=== PATIENT | female | born 1990 | race Caucasian/White ===

== ENCOUNTER 2019-05-01 08:21 | Day surgery (SDC) | payer BC ==
[~2019-05-01 08:21] MED LIST: Lactated Ringers 1,000 ML IV SCH; Sodium Chloride 0.9% 10 ML SDV IV PRN; Sodium Chloride 0.9% 10 ML Syringe FLUSH PRN; Sodium Chloride 0.9% 2.5 ML Syringe FLUSH PRN; ceFAZolin 2 GM in Premix Bag 1 BAG IV ONE
[2019-05-01] MEDS ORDERED: Propofol 200 MG/20 ML SDV ONE (09:00)
[2019-05-01] MEDS ORDERED: Midazolam 1 MG/ML 2 ML SDV ONE ×2 (09:01)
[2019-05-01] MEDS ORDERED: Sodium Chloride 0.9% 20 ML ONE (09:04)
[2019-05-01] MEDS ORDERED: ceFAZolin 1 GM Vial ONE (09:04)
--- NOTE | 2019-05-01 09:10 | PCM.PREANE ---
Preanesthetic Assessment - Anesthesia/Transfusion/Family Hx Anesthesia History: Prior Anesthesia Without Reaction Family History of Anesthesia Reaction: No Transfusion History: No Prior Transfusion(s) Intubation History: Unknown - Review of Systems General: No Symptoms Pulmonary: No Symptoms Cardiovascular: No Symptoms Gastrointestinal: No Symptoms Neurological: No Symptoms Other: Reports: None - Physical Assessment Vital Signs: Last Vital Signs Temp 36.4 C 05/01/19 08:35 Pulse 99 05/01/19 08:35 Resp 20 05/01/19 08:35 BP 121/80 05/01/19 08:35 Pulse Ox 97 05/01/19 08:35 Height: 5 ft Weight: 94.801 kg ASA Class: 2 Mental Status: Alert & Oriented x3 Airway Class: Mallampati = 1 Dentition: Reports: Normal Dentition, [place](s) (x1 lower right and left (back)) Thyro-Mental Finger Breadths: 3 Mouth Opening Finger Breadths: 3 ROM/Head Extension: Full Lungs: Clear to Auscultation, Normal Respiratory Effort Cardiovascular: Regular Rate, Regular Rhythm - Allergies Allergies/Adverse Reactions: Allergies Allergy/AdvReac Type Severity Reaction Status Date / Time amoxicillin Allergy Itching Verified 04/26/19 09:48 latex Allergy Itching Verified 04/26/19 09:48 sulfamethoxazole Allergy Itching Verified 04/26/19 09:48 cinnamon Allergy Abdominal Uncoded 04/26/19 09:48 Pain - Blood Blood Available: No - Anesthesia Plan Pre-Op Medication Ordered: None - Acknowledgements Anesthesia Type Planned: MAC Pt an Appropriate Candidate for the Planned Anesthesia: Yes Alternatives and Risks of Anesthesia Discussed w Pt/Guardian: Yes Pt/Guardian Understands and Agrees with Anesthesia Plan: Yes PreAnesthesia Questionnaire HEENT History: Reports: Other (See Below) Other HEENT History: wears glasses Cardiovascular History: Reports: None Respiratory History: Reports: None Gastrointestinal History: Reports: None Genitourinary History: Reports: None [employer] History: Reports: Musculoskeletal History: Reports: None Neurological History: Reports: Migraines Psychiatric History: Reports: Anxiety, Depression Endocrine/Metabolic History: Reports: Obesity/BMI 30+ (BMI 40.8) Hematologic History: Reports: None Immunologic History: Reports: None Oncologic (Cancer) History: Reports: None Dermatologic History: Reports: None - Past Surgical History Head Surgeries/Procedures: Reports: None HEENT Surgical History: Reports: None Cardiovascular Surgical History: Reports: None Respiratory Surgical History: Reports: None GI Surgical History: Reports: None Female Surgical History: Reports: Tubal Ligation Endocrine Surgical History: Reports: None Neurological Surgical History: Reports: None Musculoskeletal Surgical History: Reports: None Oncologic Surgical History: Reports: None Dermatological Surgical History: Reports: Other (See Below) (attempted exc. of upper back mass ( sebaceous cyst vs. lipoma)) - SUBSTANCE USE Smoking Status *Q: Never Smoker Recreational Drug Use History: No - HOME MEDS Home Medications: Home Meds Aspirin/Acetaminophen/Caffeine [Migraine Formula Caplet] 1 tab PO ASDIRECTED PRN 04/26/19 [History] Phentermine/Topiramate [Qsymia 3.75 mg-23 mg Capsule] 1 tab PO DAILY 04/26/19 [ History] - CURRENT (IN HOUSE) MEDS Current Meds: Current Medications Lactated Ringer's (Ringers, Lactated) 1,000 mls @ 125 mls/hr IV ASDIRECTED HARRIET Last Admin: 05/01/19 09:06 Dose: 125 mls/hr Sodium Chloride (Saline Flush) 10 ml FLUSH ASDIRECTED PRN PRN Reason: Keep Vein Open Sodium Chloride (Saline Flush) 2.5 ml FLUSH ASDIRECTED PRN PRN Reason: Keep Vein Open Sodium Chloride (Normal Saline) 10 ml IV ASDIRECTED PRN PRN Reason: IV Use Discontinued Medications Cefazolin Sodium (Ancef) Confirm Administered Dose 2 gm .ROUTE .STK-MED ONE Stop: 05/01/19 09:05 Cefazolin Sodium/Dextrose 2 gm (/ Premix) 50 mls @ 100 mls/hr IV ONETIME ONE Stop: 04/30/19 11:20 Sodium Chloride (Normal Saline) Confirm Administered Dose 20 mls @ as directed .ROUTE .STK-MED ONE Stop: 05/01/19 09:05 Midazolam HCl (Versed 1 Mg/Ml) Confirm Administered Dose 2 mg .ROUTE .STK-MED ONE Stop: 05/01/19 09:02 Midazolam HCl (Versed 1 Mg/Ml) Confirm Administered Dose 2 mg .ROUTE .STK-MED ONE Stop: 05/01/19 09:02 Propofol (Diprivan 20 Ml) Confirm Administered Dose 400 mg .ROUTE .STK-MED ONE Stop: 05/01/19 09:01
[2019-05-01] MEDS ORDERED: Bupivacaine 0.5% 30 ML SDV ONE (10:11)
[2019-05-01] MEDS ORDERED: Octyl 2-Cyanoacrylate 1 Tube ONE (10:11)
[2019-05-01] MEDS ORDERED: Lidocaine 1% 20 ML MDV ONE (10:11)
[2019-05-01] MEDS ORDERED: fentaNYL 100 MCG/2 ML SDV ONE (10:15)
--- NOTE | 2019-05-01 11:30 | PCM.OPNOTE ---
- General Post-Op/Procedure Note Date of Surgery/Procedure: 05/01/19 Operative Procedure(s): Excision right upper back cyst Findings: 2 x 0.75 x 0.5 cm skin scar removed. Underlying this was a 2 cm cyst Pre Op Diagnosis: Sebaceous cyst Post-Op Diagnosis: same Anesthesia Technique: MAC Primary Surgeon: Loulou Rivera Fluid Replacement, Intraop: 900 EBL in mLs: 5 Condition: Good
--- NOTE | 2019-05-01 11:41 | PCM.POSTAN ---
POST ANESTHESIA ASSESSMENT - MENTAL STATUS Mental Status: Alert, Oriented - VITAL SIGNS Vital Signs: Last Vital Signs Temp 37.1 C 05/01/19 11:25 Pulse 90 05/01/19 11:35 Resp 19 05/01/19 11:35 BP 93/47 L 05/01/19 11:35 Pulse Ox 98 05/01/19 11:35 - RESPIRATORY Respiratory Status: Respiratory Rate WNL, Airway Patent, O2 Saturation Stable - CARDIOVASCULAR CV Status: Pulse Rate WNL, Blood Pressure Stable - GASTROINTESTINAL GI Status: No Symptoms - PAIN Pain Score: 0 - POST OP HYDRATION Hydration Status: Adequate & Stable - OBSERVATIONS Free Text/Narrative:: no anesthesia problems
[2019-05-01 12:19] VITALS: BP 107/59; PULSE 77
--- NOTE | 2019-05-01 12:19 | PCM48HPAN ---
Post Anesthesia Note - EVALUATION WITHIN 48HRS OF ANESTHETIC Vital Signs in Normal Range: Yes Patient Participated in Evaluation: Yes Respiratory Function Stable: Yes Airway Patent: Yes Cardiovascular Function Stable: Yes Hydration Status Stable: Yes Pain Control Satisfactory: Yes Nausea and Vomiting Control Satisfactory: Yes Mental Status Recovered: Yes Vital Signs: Last Vital Signs Temp 36.2 C 05/01/19 11:41 Pulse 77 05/01/19 12:18 Resp 20 05/01/19 12:18 BP 107/59 L 05/01/19 12:18 Pulse Ox 96 05/01/19 12:18 - COMMENTS/OBSERVATIONS Free Text/Narrative:: no anesthesia problems
--- NOTE | 2019-05-01 19:09 | OR ---
SURGEON: LOULOU RIVERA MD DATE OF PROCEDURE: 05/01/2019 PREOPERATIVE DIAGNOSIS: Sebaceous cyst, upper back. POSTOPERATIVE DIAGNOSIS: Sebaceous cyst, upper back. PROCEDURE PERFORMED: Excision of right upper back cyst. PRIMARY SURGEON: Loulou Rivera MD. ANESTHESIA: MAC. FLUIDS: 900 mL crystalloid. ESTIMATED BLOOD LOSS: 5 mL. FINDINGS: 2 cm x 0.75 cm x 0.5 cm excision of previous scar over cyst, 2 cm underlying cyst. COMPLICATIONS: None. INDICATIONS: The patient is a 29-year-old female who recently had an infected right upper back sebaceous cyst. This was incised and drained by the patient's primary care provider. It has since healed, but the patient feels a large lump under her previous scar. She would like to have it removed. I explained the procedure, expected perioperative course, and risks including bleeding, infection, or damage to surrounding structures. She verbalized understanding and wishes to proceed. PROCEDURE IN DETAIL: The patient is brought to the OR and placed on the OR table in a left lateral decubitus position. A time-out was completed verifying the patient's name, age, date of , allergies, and procedure to be performed. All bony prominences were appropriately padded and the patient was secured to the table. Monitored anesthesia care was induced. The upper back was prepped and draped in usual standard fashion. I anesthetized the area overlying the patient's mass with a 1:1 mixture of 0.5% Marcaine plain and 1% lidocaine plain. A 15 blade was used to make a 2 cm elliptical incision around the patient's previous scar and overlying the mass. This incision was carried down through the skin using electrocautery. It was then elevated and I began my dissection in the subcutaneous fat layer using electrocautery. I immediately encountered a cyst underneath the previous surgical scar. I dissected this free from the surrounding structures. It was then passed off the field and set on the back table. The patient had a 2 cm cyst and overlying that I excised a 2 x 0.75 x 0.5 cm piece of skin. The wound cavity was inspected and electrocautery was used to achieve hemostasis. There was one area that continued to bleed despite this. A 3-0 Vicryl was used to tie this area off and achieve hemostasis. The wound was then irrigated with normal saline until it ran clear. The wound was then closed with interrupted 3-0 Vicryl sutures in the subcutaneous fat layer. The skin was closed with a running 4-0 Monocryl stitch. Dermabond and sterile dressings were applied. The patient tolerated the procedure well and was transferred to the PACU in stable condition. All counts were complete and correct at the end of the case. DESTIN BARAHONA /[id number]
== END 2019-05-01 12:20 | disposition home or self-care (01) ==
LOC: MW.SDS 08:21
PROVIDERS: ATTEND Surgery
DX: L72.0 Epidermal cyst (principal); G43.909 Migraine, unspecified, not intractable, without status migrainosus; F41.9 Anxiety disorder, unspecified; F32.9 Major depressive disorder, single episode, unspecified; E66.9 Obesity, unspecified; Z68.41 Body mass index [BMI] 40.0-44.9, adult; Z79.82 Long term (current) use of aspirin; Z79.899 Other long term (current) drug therapy; Z91.040 Latex allergy status; Z88.2 Allergy status to sulfonamides; Z91.018 Allergy to other foods; Z88.1 Allergy status to other antibiotic agents
CPT/HCPCS: 11402; 12031; 81025; 88304; A9270; J0690; J2001; J2250; J2704; J3010; J3490; J7120; 00300

== ENCOUNTER 2021-01-27 08:28 | Emergency (ER) | payer BC ==
--- NOTE | 2021-01-27 08:55 | EDM.PDOC ---
ED HPI GENERAL MEDICAL PROBLEM - General Chief Complaint: Respiratory Problem Stated Complaint: COUGHING ALOT,CANT CATCH HER BREATH Time Seen by Provider: 01/27/21 08:30 Source of Information: Reports: Patient History Limitations: Reports: No Limitations - History of Present Illness INITIAL COMMENTS - FREE TEXT/NARRATIVE: Patient is a 30-year-old female who presents today for cough. Patient that she has been having body aches and cough for the past week. She has been trying [id number] medication but states that today she cannot control her cough and has been coughing repeatedly. She now has some chest pain with coughing only. She has some chills but denies any fevers. Denies any nausea vomiting or other complaints. - Related Data Allergies Allergy/AdvReac Type Severity Reaction Status Date / Time amoxicillin Allergy Itching Verified 01/27/21 08:47 latex Allergy Itching Verified 01/27/21 08:47 sulfamethoxazole Allergy Itching Verified 01/27/21 08:47 cinnamon Allergy Abdominal Uncoded 01/27/21 08:47 Pain Home Meds: Home Meds Aspirin/Acetaminophen/Caffeine [Migraine Formula Caplet] 1 tab PO ASDIRECTED PRN 04/26/19 [History] Phentermine/Topiramate [Qsymia 3.75 mg-23 mg Capsule] 1 tab PO DAILY 04/26/19 [History] Past Medical History HEENT History: Reports: Other (See Below) Other HEENT History: wears glasses Cardiovascular History: Reports: None Respiratory History: Reports: None Gastrointestinal History: Reports: None Genitourinary History: Reports: None [employer] History: Reports: Musculoskeletal History: Reports: None Neurological History: Reports: Migraines Psychiatric History: Reports: Anxiety, Depression Endocrine/Metabolic History: Reports: Obesity/BMI 30+ (BMI 40.8) Hematologic History: Reports: None Immunologic History: Reports: None Oncologic (Cancer) History: Reports: None Dermatologic History: Reports: None - Past Surgical History Head Surgeries/Procedures: Reports: None HEENT Surgical History: Reports: None Cardiovascular Surgical History: Reports: None Respiratory Surgical History: Reports: None GI Surgical History: Reports: None Female Surgical History: Reports: Tubal Ligation Endocrine Surgical History: Reports: None Neurological Surgical History: Reports: None Musculoskeletal Surgical History: Reports: None Oncologic Surgical History: Reports: None Dermatological Surgical History: Reports: Other (See Below) (attempted exc. of upper back mass ( sebaceous cyst vs. lipoma)) ED ROS GENERAL - Review of Systems Review Of Systems: See Below Constitutional: Reports: Chills HEENT: Reports: No Symptoms Respiratory: Reports: Cough Cardiovascular: Reports: No Symptoms Endocrine: Reports: No Symptoms GI/Abdominal: Reports: No Symptoms : Reports: No Symptoms Musculoskeletal: Reports: No Symptoms Skin: Reports: No Symptoms Neurological: Reports: No Symptoms Psychiatric: Reports: No Symptoms Hematologic/Lymphatic: Reports: No Symptoms Immunologic: Reports: No Symptoms ED EXAM, GENERAL - Physical Exam Exam: See Below Exam Limited By: No Limitations General Appearance: Alert, WD/WN, No Apparent Distress Eye Exam: Bilateral Eye: EOMI, PERRL Neck: Normal Inspection, Supple Respiratory/Chest: No Respiratory Distress, Lungs Clear, Normal Breath Sounds Cardiovascular: Normal Peripheral Pulses, Regular Rate, Rhythm GI/Abdominal: Normal Bowel Sounds, Soft, Non-Tender Neurological: Alert, Oriented, Normal Cognition, Normal Gait Course - Vital Signs Last Recorded V/S: Last Vital Signs Temp 97 F 01/27/21 08:47 Pulse 78 01/27/21 09:14 Resp 16 01/27/21 09:14 BP 108/70 01/27/21 09:14 Pulse Ox 96 01/27/21 09:14 - Orders/Labs/Meds Labs: Laboratory Tests 01/27/21 01/27/21 01/27/21 Range/Units 08:45 08:45 08:55 Urine Color DARK YELLOW Urine Appearance SLT CLOUDY Urine pH 6.0 (5.0-8.0) Ur Specific [place] 1.025 (1.001-1.035) Urine Protein NEGATIVE (NEGATIVE) mg/dL Urine Glucose (UA) NEGATIVE (NEGATIVE) mg/dL Urine Ketones 15 H (NEGATIVE) mg/dL Urine Occult Blood NEGATIVE (NEGATIVE) Urine Nitrite NEGATIVE (NEGATIVE) Urine Bilirubin SMALL H (NEGATIVE) Urine Ictotest NEGATIVE Urine Urobilinogen 0.2 (<2.0) EU/dL Ur Leukocyte Esterase SMALL H (NEGATIVE) Urine RBC 0-3 (0-2/HPF) Urine WBC 3-5 (0-5/HPF) Ur Epithelial Cells MANY (NONE-FEW) Amorphous Sediment LIGHT (NEGATIVE) Urine Bacteria FEW (NEGATIVE) Urine Mucus MODERATE (NONE-MOD) Urine HCG, Qual NEGATIVE (NEGATIVE) SARS-CoV-2 RNA (ADAM) POSITIVE H (NEGATIVE) - Re-Assessments/Exams Free Text/Narrative Re-Assessment/Exam: 01/27/21 10:15 Patient is Covid positive. Patient is on room air sat 96%. Patient will be discharged home with Covid instructions. Departure - Departure Time of Disposition: 10:16 Disposition: Home, Self-Care 01 Condition: Good Clinical Impression: COVID - Discharge Information *PRESCRIPTION DRUG MONITORING PROGRAM REVIEWED*: Not Applicable *COPY OF PRESCRIPTION DRUG MONITORING REPORT IN PATIENT SCOTTIE: Not Applicable Instructions: COVID-19: How to Protect Yourself and Others - [facility] Referrals: Sharon Helms NP [Primary Care Provider] - Forms: ED Department Discharge Additional Instructions: The following information is given to patients seen in the emergency department who are being discharged to home. This information is to outline your options for follow-up care. We provide all patients seen in our emergency department w ith a follow-up referral. The need for follow-up, as well as the timing and circumstances, are variable depending upon the specifics of your emergency department visit. If you don't have a primary care physician on staff, we will provide you with a referral. We always advise you to contact your personal physician following an emergency department visit to inform them of the circumstance of the visit and for follow-up with them and/or the need for any referrals to a consulting specialist. The emergency department will also refer you to a specialist when appropriate. This referral assures that you have the opportunity for follow-up care with a specialist. All of these measure are taken in an effort to provide you with optimal care, which includes your follow-up. Under all circumstances we always encourage you to contact your private physician who remains a resource for coordinating your care. When calling for follow-up care, please make the office aware that this follow-up is from your recent emergency room visit. If for any reason you are refused follow-up, please contact the [facility] Emergency Department at and asked to speak to the emergency department charge nurse. Please follow up with your primary care physician. If you do not have a primary care physician, see below: [facility] [address] [place] [id number] [facility] [address] [place] [address] Home Care Instructions for Patients with Mild Respiratory Infection Most people with respiratory infections like colds, the flu, and Coronavirus Disease (COVID-19) will have mild illness and can get better with appropriate home care and without the need to see a provider. People who are elderly, , or have a weak immune system, or other medical problem are at higher risk of more serious illness or complications. It is recommended that they carefully monitor their symptoms closely and seek medical care early if their symptoms get worse. TREATMENT AND MEDICAL CARE Treatment There is no specific treatment for most viruses including those that that cause the common cold and those that cause COVID-19. Sometimes there is treatment for the viruses that cause influenza if given early. Antibiotics treat infections caused by bacteria, but they do not work against viruses. Most people recover on their own from these viruses, including COVID-19. Here are steps that you can take to help you get better: Rest Drink plenty of fluids Take aldd-wjy-mzywsgd cold and flu medications to reduce fever and pain. Follow the instructions on the package, unless your doctor gave you instructions. Note that these medicines do not cure the illness and therefore do not stop you from spreading germs. Children should not be given medication that contains aspirin (acetylsalicylic acid) because it can cause a rare but serious illness called Carlos Alberto syndrome. Medicines without aspirin include acetaminophen (Tylenol) and ibuprofen (Advil, Motrin). Children younger than age 2 should not be given any krvj-dnu-dggpodv cold medications without first speaking with a doctor. Seeking Medical Care You should seek medical care if you are not getting better within a week, or if your symptoms get worse. If you are elderly, , have a weak immune syst em, or other medical problems, call your doctor right away. It is best to call ahead of time to discuss your symptoms, if possible. This may allow you to receive the advice you need by phone. By avoiding a visit to a healthcare facility, you protect yourself from getting a new infection and protect others from catching an infection from you. If you do visit a healthcare facility, put on a mask to protect other patients and staff. It is recommended that you seek medical care for serious symptoms, such as: People with potentially life-threatening symptoms should call 911. If possible, put on a facemask before emergency medical services arrive. PROTECTING OTHERS Follow the steps below to help prevent the disease from spreading to people in your home and community. Stay home when you are sick Stay home do not go to work, school, or public areas. Stay home for at least 24 hours after your symptoms have gone away without the use of fever-reducing medicines. If you must leave home while you are sick, try to avoid using public transportation, ride-shares, and taxis. Wear a mask if possible. Separate yourself from other people and animals in your home Stay in a specific room and away from other people in your home as much as possible. Use a separate bathroom, if available. Try to stay at least 6 feet from others. Do not handle pets or other animals while you are sick. Cover your coughs and sneezes Cover your mouth and nose with a tissue when you cough or sneeze. Throw used tissues in a lined trash can; immediately wash your hands. Avoid sharing personal household items Do not share dishes, drinking glasses, cups, eating utensils, towels, or bedding with other people or pets in your home. Wash them thoroughly with soap and water after use. Clean your hands often Wash your hands often with soap and water for at least 20 seconds. If soap and water are not available, clean your hands with an alcohol-based hand coremaker floor that contains at least 60% alcohol, covering all surfaces of your hands and rubbing them together until they feel dry. Use soap and water if your hands are visibly dirty. Clean all high-touch surfaces every day High touch surfaces include counters, tabletops, doorknobs, bathroom fixtures, toilets, phones, keyboards, tablets, and bedside tables. Also, clean any surfaces that may have body fluids on them. Use a household cleaning spray or wipe, according to the product label instructions. Sepsis Event Note (ED) - Focused Exam Vital Signs: Vital Signs Temp Pulse Resp BP Pulse Ox 01/27/21 09:14 78 16 108/70 96 01/27/21 08:47 97 F 55 L 20 114/65 95 - Assessment/Plan Plan: Patient is a 30-year-old female who presents today for a cough. Patient has some chest pain with coughing only. She denies any shortness of breath currently on exam but states when she has coughing fits is difficult for her to catch her breath. She denies any fevers. Will obtain x-ray and reassess patient.
--- NOTE | 2021-01-27 09:33 | CR ---
Indication: Cough, chest pain Comparison: None available. Technique: PA and Lateral views chest Findings: There are scattered interstitial, airspace and ground-glass opacities in the bilateral hemithoraces which may represent developing multifocal infiltrates and/or pulmonary edema. The cardiomediastinal silhouette is within normal limits. The bony thorax is grossly intact. Impression: Scattered interstitial, airspace and ground-glass opacities within the bilateral hemithoraces likely representing pulmonary edema versus multifocal infiltrates. Correlate with history of king virus exposure. Dictated by Alberto Velasquez MD @ 01/27/2021 9:31:[address] Alberto Velasquez @ Jan 27 2021 9:31AM
[2021-01-27 10:20] VITALS: BP 99/50; PULSE 89
== END 2021-01-27 10:25 | disposition home or self-care (01) ==
LOC: MW.ED 08:28
DX: U07.1 COVID-19 (principal); G43.909 Migraine, unspecified, not intractable, without status migrainosus; E66.9 Obesity, unspecified; Z68.31 Body mass index [BMI] 31.0-31.9, adult; Z88.0 Allergy status to penicillin; Z91.040 Latex allergy status; Z88.2 Allergy status to sulfonamides; Z91.018 Allergy to other foods; Z79.899 Other long term (current) drug therapy
CPT/HCPCS: 71046; 71046-26; 81001; 81025; 99283-25; U0002